=== PATIENT | male | born 1970 | race Caucasian/White ===

== ENCOUNTER 2016-11-21 10:51 | Emergency (ER) | payer BC, MEDICAID ==
[2016-11-21 11:01] VITALS: BMI 25.4
[2016-11-21 11:12] VITALS: RESP 18; TEMP 98.3
[2016-11-21 12:39] LABS: BASO # 0.1 K/uL (0.0-0.2); BASO % 0.7 % (0.0-2.0); EOS # 0.1 K/uL (0.0-0.7); EOS % 1.1 % (0.0-4.0); HEMATOCRIT 42.7 % (35.0-51.0); LYMPH # 1.8 K/uL (1.0-4.3); LYMPH % 18.2 % (20.0-40.0); MEAN CELL VOLUME 83.9 fl (80.0-94.0); MEAN CORPUSCULAR HEMOGLOBIN 29.2 pg (27.0-31.0); MEAN CORPUSCULAR HGB CONC 34.8 g/dL (33.0-37.0); MEAN PLATELET VOLUME 7.8 fl (7.2-11.7); MONO # 0.8 K/uL (0.0-0.8); MONO % 8.5 % (0.0-10.0); NEUT % 71.5 % (50.0-75.0); RED CELL DISTRIBUTION WIDTH 12.8 % (11.5-14.5); WHITE BLOOD COUNT 9.7 K/uL (4.8-10.8)
[2016-11-21 12:47] LABS: ALB/GLOB RATIO 1.1 (1.0-2.1); ALKALINE PHOSPHATASE 94 U/L (38-126); ALT/SGPT 44 U/L (21-72); AST/SGOT 25 U/L (17-59); BILIRUBIN,TOTAL 0.5 mg/dl (0.2-1.3); BLOOD UREA NITROGEN 11 mg/dl (9-20); CALCIUM 8.7 mg/dL (8.4-10.2); CARBON DIOXIDE 23 mmol/L (22-30); CHLORIDE 106 mmol/L (98-107); GFR AFRICAN-AMERICAN > 60; GLUCOSE,RANDOM 99 mg/dL (75-110); LIPASE 30 U/L (23-300); POTASSIUM 3.8 MMOL/L (3.6-5.0); SODIUM 139 mmol/l (132-148); TOTAL PROTEIN 7.5 G/DL (6.3-8.2)
--- NOTE | 2016-11-21 13:32 | ED PDOC ---
HPI: Abdomen Time Seen by Provider: 11/21/16 11:13 Chief Complaint (Nursing): Abdominal Pain Chief Complaint (Provider): Cramping Abdominal Pain History Per: Patient History/Exam Limitations: no limitations Onset/Duration Of Symptoms: Days Outside of [place] travel?: No Current Symptoms Are (Timing): Still Present Quality Of Discomfort: Cramping Associated Symptoms: denies: Fever, Vomiting Additional Complaint(s): Remington Ulloa, a 46 year old male, presents to the ED complaining of cramping abdominal pain associated with mucous stools which started yesterday. The patient states that he ate some cheese from [place] and that may be the cause of his pain. Denies vomiting, bloody stools, fever. Past Medical History Reviewed: Historical Data, Nursing Documentation, Vital Signs Vital Signs: Last Vital Signs Temp 98.3 F 11/21/16 11:09 Pulse 79 11/21/16 14:47 Resp 18 11/21/16 14:47 BP 112/70 11/21/16 14:47 Pulse Ox 98 11/21/16 14:47 - Medical History PMH: No Chronic Diseases - Surgical History Surgical History: No Surg Hx - Family History Family History: States: Unknown Family Hx - Social History Current smoker - smoking cessation education provided: No Alcohol: None Drugs: Denies - Home Medications Home Medications: Ambulatory Orders Medication Instructions Recorded Neomycin/Polymyxin/Hydrocort 4 drop TOP QID #1 bottle 12/03/13 [Cortisporin Otic Soln] Amoxicillin/Clavulanate Pota 1 tab PO BID #14 tab 12/21/13 [Augmentin 875 mg-125 mg] Guaifenesin/Pseudoephedrne HCl 1 tab PO DAILY PRN #30 ter 12/21/13 [Mucinex D 600 mg-60 mg] Ibuprofen [Motrin] 600 mg PO Q6 PRN #20 tab 12/21/13 Azithromycin [Zithromax Z-Yo] 250 mg PO DAILY #5 tab 01/22/14 Ibuprofen [Motrin] 600 mg PO Q6 PRN #20 tab 01/22/14 diaZEpam [Valium] 5 mg PO Q6 PRN #8 tab 11/16/15 Dicyclomine [Dicyclomine HCl] 10 mg PO TID PRN #15 cap 11/21/16 Sulfamethoxazole/Trimethoprim 1 tab PO BID #6 tab 11/21/16 [Bactrim DS 800 mg-160 mg] - Allergies Allergies/Adverse Reactions: Allergies Allergy/AdvReac Type Severity Reaction Status Date / Time No Known Allergies Allergy Verified 11/21/16 11:08 Review of Systems Constitutional: Negative for: Fever Gastrointestinal: Positive for: Abdominal Pain (Cramping abdominal pain). Negative for: Vomiting, Hematochezia Physical Exam - Reviewed Nursing Documentation Reviewed: Yes Vital Signs Reviewed: Yes - Physical Exam Appears: Positive for: Non-toxic, No Acute Distress Head Exam: Positive for: ATRAUMATIC, NORMAL INSPECTION, NORMOCEPHALIC Skin: Positive for: Normal Color, Warm, Dry. Negative for: Rash Eye Exam: Positive for: Normal appearance, EOMI, PERRL. Negative for: Nystagmus ENT: Positive for: Normal ENT Inspection. Negative for: Nasal Congestion, Tonsillar Swelling Neck: Positive for: Normal, Painless ROM, Supple Cardiovascular/Chest: Positive for: Regular Rate, Rhythm, Chest Non Tender. Negative for: Murmur, Tachycardia Respiratory: Positive for: Normal Breath Sounds. Negative for: Rales, Rhonchi, Wheezing, Respiratory Distress Gastrointestinal/Abdominal: Positive for: Bowel Sounds, Soft, Tenderness (mild tenderness in epigastric area ). Negative for: Guarding, Rebound Back: Positive for: Normal Inspection. Negative for: L CVA Tenderness, R CVA Tenderness Extremity: Positive for: Normal ROM. Negative for: Tenderness, Pedal Edema, Deformity, Swelling Neurologic/Psych: Positive for: Alert, Oriented, Gait - Laboratory Results Result Diagrams: 11/21/16 12:30 11/21/16 12:30 - ECG O2 Sat by Pulse Oximetry: 99 (RA) Pulse Ox Interpretation: Normal - Progress Re-evaluation Time: 14:00 Condition: Re-examined, Improved Medical Decision Making Medical Decision Makin Initial Impression: 46 year old male presenting with abdominal pain Differentials: Colitis, Enteritis, diverticulitis Initial Plan: * CMP * Lipase * CBC * Bentyl 10mg PO * Reevaluation Scribe Attestation Documented by Symone Aggarwal acting as a scribe for Gerasim Orbelyan , MD. Provider Attestation All medical record entries made by the Scribe were at my direction and personally dictated by me. I have reviewed the chart and agree that the record accurately reflects my personal performance of the history, physical exam, medical decision making, and the department course for this patient. I have also personally directed, reviewed, and agree with the discharge instructions and disposition. Disposition - Clinical Impression Clinical Impression: Abdominal pain, Colitis - Patient ED Disposition Is Patient to be Admitted: No Doctor Will See Patient In The: Office Counseled Patient/Family Regarding: Studies Performed, Diagnosis, Need For Followup - Disposition Referrals: [facility] [Outside] Disposition: Routine/Home Disposition Time: 14:00 Condition: GOOD Additional Instructions: Take your medications as instructed. Follow up with your PCP in 2-3 days. Prescriptions: Dicyclomine [Dicyclomine HCl] 10 mg PO TID PRN #15 cap PRN Reason: Diarrhea Sulfamethoxazole/Trimethoprim [Bactrim DS 800 mg-160 mg] 1 tab PO BID #6 tab Instructions: Colitis (ED) Forms: [employer] (Australian)
[2016-11-21 14:48] VITALS: BP 112/70; PULSE 79
[2016-11-23 10:20] VITALS: O2SAT 99
== END 2016-11-21 14:48 | disposition home or self-care (01) ==
LOC: H.ER 10:51
DX: K52.9 Noninfective gastroenteritis and colitis, unspecified (principal)

== ENCOUNTER 2017-03-15 23:38 | Emergency (ER) | payer MEDICAID ==
[2017-03-15 23:38] VITALS: BMI 25.4
[2017-03-15 23:59] VITALS: RESP 16
[2017-03-16 01:26] VITALS: PULSE 72; TEMP 97.4; O2SAT 100
--- NOTE | 2017-03-16 01:45 | ED PDOC ---
HPI: Abdomen Time Seen by Provider: 03/16/17 00:08 Chief Complaint (Nursing): Abdominal Pain Chief Complaint (Provider): Abdominal Pain History Per: Patient History/Exam Limitations: no limitations Onset/Duration Of Symptoms: Days (x1) Outside of US travel?: No Current Symptoms Are (Timing): Better Location Of Pain/Discomfort: Epigastric Quality Of Discomfort: Cramping Associated Symptoms: Diarrhea. denies: Fever, Nausea, Vomiting Additional Complaint(s): 46 year old male presents to ED with complaints of abdominal pain and diarrhea x1 day and has a past medical history of HTN. Notes that symptoms were worse yesterday but are still present today. Describes abdominal pain as cramping and notes presence of mucous in stool. Notes that he had these symptoms once before when he was diagnosed with colitis. (-0 fever, nausea, vomiting, weight loss, antibiotics use, or travel. PCP: [facility] Past Medical History Reviewed: Historical Data, Nursing Documentation, Vital Signs Vital Signs: Last Vital Signs Temp 97.4 F L 03/16/17 01:23 Pulse 72 03/16/17 01:23 Resp 16 03/16/17 01:23 BP 110/61 03/16/17 03:07 Pulse Ox 100 03/16/17 03:00 - Medical History PMH: HTN - Family History Family History: States: Unknown Family Hx - Social History Alcohol: None Drugs: Denies - Home Medications Home Medications: Ambulatory Orders Medication Instructions Recorded Neomycin/Polymyxin/Hydrocort 4 drop TOP QID #1 bottle 12/03/13 [Cortisporin Otic Soln] Amoxicillin/Clavulanate Pota 1 tab PO BID #14 tab 12/21/13 [Augmentin 875 mg-125 mg] Guaifenesin/Pseudoephedrne HCl 1 tab PO DAILY PRN #30 ter 12/21/13 [Mucinex D 600 mg-60 mg] Ibuprofen [Motrin] 600 mg PO Q6 PRN #20 tab 12/21/13 Azithromycin [Zithromax Z-Yo] 250 mg PO DAILY #5 tab 01/22/14 Ibuprofen [Motrin] 600 mg PO Q6 PRN #20 tab 01/22/14 diaZEpam [Valium] 5 mg PO Q6 PRN #8 tab 11/16/15 Dicyclomine [Dicyclomine HCl] 10 mg PO TID PRN #15 cap 11/21/16 Sulfamethoxazole/Trimethoprim 1 tab PO BID #6 tab 11/21/16 [Bactrim DS 800 mg-160 mg] Dicyclomine [Bentyl] 10 mg PO QID #20 cap 03/16/17 - Allergies Allergies/Adverse Reactions: Allergies Allergy/AdvReac Type Severity Reaction Status Date / Time No Known Allergies Allergy Verified 11/21/16 11:08 Review of Systems ROS Statement: Except As Marked, All Systems Reviewed And Found Negative Constitutional: Negative for: Fever, Weight loss Gastrointestinal: Positive for: Abdominal Pain, Diarrhea. Negative for: Nausea , Vomiting Physical Exam - Reviewed Nursing Documentation Reviewed: Yes Vital Signs Reviewed: Yes - Physical Exam Appears: Positive for: Non-toxic, No Acute Distress Skin: Positive for: Normal Color, Warm, Dry Eye Exam: Positive for: Normal appearance ENT: Positive for: Normal ENT Inspection Neck: Positive for: Normal Cardiovascular/Chest: Positive for: Regular Rate, Rhythm. Negative for: Murmur Respiratory: Positive for: Normal Breath Sounds. Negative for: Respiratory Distress Gastrointestinal/Abdominal: Positive for: Soft, Tenderness (mild epigastric tenderness). Negative for: Distended Back: Positive for: Normal Inspection Extremity: Positive for: Normal ROM. Negative for: Deformity Neurologic/Psych: Positive for: Alert, Oriented. Negative for: Motor/Sensory Deficits - Laboratory Results Result Diagrams: 03/16/17 01:38 03/16/17 01:38 - ECG O2 Sat by Pulse Oximetry: 100 (RA) Pulse Ox Interpretation: Normal Medical Decision Making Medical Decision Makin Initial impression: colitis v colon spasm Initial plan: * Labs * Lipase * Bentyl 20mg PO * Stool Cx * UA * Re-eval 0300 Labs reviewed: no clinically significant abnormalities Patient is stable for discharge home. Will follow up with Dr. Taylor Dx: diarrhea Scribe Attestation: Documented by Bettye Vences acting as a scribe for aSlomon Roth MD. Scribe Attestation: All medical record entries made by the Scribe were at my direction and personally dictated by me. I have reviewed the chart and agree that the record accurately reflects my personal performance of the history, physical exam, medical decision making, and the department course for this patient. I have also personally directed, reviewed, and agree with the discharge instructions and disposition. Disposition - Clinical Impression Clinical Impression: Diarrhea - Disposition Referrals: Shruthi Taylor MD [Family Provider] - Disposition: Routine/Home Disposition Time: 03:00 Condition: STABLE Additional Instructions: Siga con Dr. Taylor por dawood resultados de la heces. Prescriptions: Dicyclomine [Bentyl] 10 mg PO QID #20 cap Instructions: Acute Diarrhea (ED), Acute Abdominal Pain (ED) Forms: [employer] (Uzbek) Print Language: IRISH
[2017-03-16 01:46] LABS: BASO # 0.1 K/uL (0.0-0.2); BASO % 1.1 % (0.0-2.0); EOS # 0.3 K/uL (0.0-0.7); EOS % 4.3 % (0.0-4.0); HEMATOCRIT 41.7 % (35.0-51.0); LYMPH # 2.9 K/uL (1.0-4.3); LYMPH % 44.3 % (20.0-40.0); MEAN CELL VOLUME 85.2 fl (80.0-94.0); MEAN CORPUSCULAR HEMOGLOBIN 28.8 pg (27.0-31.0); MEAN CORPUSCULAR HGB CONC 33.8 g/dL (33.0-37.0); MONO # 0.7 K/uL (0.0-0.8); MONO % 10.6 % (0.0-10.0); NEUT # 2.6 K/uL (1.8-7.0); NEUT % 39.7 % (50.0-75.0); NRBC % 0.1 % (0.0-0.0); RED CELL DISTRIBUTION WIDTH 12.8 % (11.5-14.5); WHITE BLOOD COUNT 6.6 K/uL (4.8-10.8)
[2017-03-16 01:47] LABS: RBC URINE < 1 /hpf (0-3); URINE BILIRUBIN NEGATIVE (NEGATIVE); URINE BLOOD NEGATIVE (NEGATIVE); URINE COLOR STRAW (YELLOW); URINE GLUCOSE (UA) NEG (Normal); URINE KETONE NEGATIVE (NEGATIVE); URINE LEUKOCYTE ESTERASE NEG Leu/uL (Negative); URINE PROTEIN NEGATIVE (NEGATIVE); URINE UROBILINOGEN 0.2-1.0 mg/dL (0.2-1.0); WBC URINE < 1 /hpf (0-5)
[2017-03-16 01:55] LABS: BLOOD UREA NITROGEN 22 mg/dl (9-20); CALCIUM 8.3 mg/dL (8.4-10.2); CARBON DIOXIDE 22 mmol/L (22-30); CHLORIDE 106 mmol/L (98-107); GFR AFRICAN-AMERICAN > 60; GLUCOSE,RANDOM 94 mg/dL (75-110); LIPASE 55 U/L (23-300); SODIUM 138 mmol/l (132-148)
[2017-03-16 03:08] VITALS: BP 110/61
== END 2017-03-16 03:07 | disposition home or self-care (01) ==
LOC: H.ER 23:38
DX: K52.9 Noninfective gastroenteritis and colitis, unspecified (principal); I10 Essential (primary) hypertension

== ENCOUNTER 2017-04-17 08:33 | Emergency (ER) | payer MEDICAID ==
[2017-04-17 08:40] VITALS: BMI 25.6
[2017-04-17 08:41] VITALS: BP 120/60; PULSE 78; RESP 17; TEMP 99.9; O2SAT 97
--- NOTE | 2017-04-17 09:02 | ED PDOC ---
HPI: CCC, URI, Sore Throat Time Seen by Provider: 04/17/17 08:51 Chief Complaint (Nursing): Cough, Cold, Congestion Chief Complaint (Provider): Cough, Sore Throat, Fever History Per: Patient History/Exam Limitations: no limitations Onset/Duration Of Symptoms: Days (x 2) Current Symptoms Are (Timing): Still Present Additional Complaint(s): Remington is a 47 y/o male with no past medical history who presents to the ED complaining of sore throat, fever, body aches, and non-productive cough for the past 2 days. He denies shortness of breath. PMD: None Past Medical History Reviewed: Historical Data, Nursing Documentation, Vital Signs Vital Signs: Last Vital Signs Temp 99.9 F H 04/17/17 08:40 Pulse 78 04/17/17 08:40 Resp 17 04/17/17 08:40 BP 120/60 04/17/17 08:40 Pulse Ox 97 04/17/17 09:37 - Medical History PMH: HTN - Family History Family History: States: Unknown Family Hx - Home Medications Home Medications: Ambulatory Orders Medication Instructions Recorded Neomycin/Polymyxin/Hydrocort 4 drop TOP QID #1 bottle 12/03/13 [Cortisporin Otic Soln] Amoxicillin/Clavulanate Pota 1 tab PO BID #14 tab 12/21/13 [Augmentin 875 mg-125 mg] Guaifenesin/Pseudoephedrne HCl 1 tab PO DAILY PRN #30 ter 12/21/13 [Mucinex D 600 mg-60 mg] Ibuprofen [Motrin] 600 mg PO Q6 PRN #20 tab 12/21/13 Azithromycin [Zithromax Z-Yo] 250 mg PO DAILY #5 tab 01/22/14 Ibuprofen [Motrin] 600 mg PO Q6 PRN #20 tab 01/22/14 diaZEpam [Valium] 5 mg PO Q6 PRN #8 tab 11/16/15 Dicyclomine [Dicyclomine HCl] 10 mg PO TID PRN #15 cap 11/21/16 Sulfamethoxazole/Trimethoprim 1 tab PO BID #6 tab 11/21/16 [Bactrim DS 800 mg-160 mg] Dicyclomine [Bentyl] 10 mg PO QID #20 cap 03/16/17 Azithromycin [Zithromax] 250 mg PO DAILY #6 tab 04/17/17 Naproxen [Naprosyn] 500 mg PO Q12H #20 tab 04/17/17 - Allergies Allergies/Adverse Reactions: Allergies Allergy/AdvReac Type Severity Reaction Status Date / Time No Known Allergies Allergy Verified 04/17/17 08:48 Review of Systems ROS Statement: Except As Marked, All Systems Reviewed And Found Negative Constitutional: Positive for: Fever, Other (body aches) ENT: Positive for: Throat Pain Respiratory: Positive for: Cough (non-productive). Negative for: Shortness of Breath Physical Exam - Reviewed Nursing Documentation Reviewed: Yes Vital Signs Reviewed: Yes - Physical Exam Appears: Positive for: Well, Non-toxic, No Acute Distress ENT: Positive for: Pharyngeal Erythema. Negative for: Tonsillar Exudate Neck: Positive for: Supple Cardiovascular/Chest: Positive for: Regular Rate, Rhythm Respiratory: Positive for: Normal Breath Sounds Extremity: Positive for: Normal ROM - ECG O2 Sat by Pulse Oximetry: 97 (RA) Pulse Ox Interpretation: Normal Medical Decision Making Medical Decision Making: Time: 8:55 Initial Impression: Cough, sore throat, fever Initial Plan: --Chest XR --Influenza A B Time: 9:30 --Patient c/o headache. Tylenol ordered Scribe Attestation: Documented by Filemon Ng, acting as a scribe for Connor Easton MD. Provider Scribe Attestation: All medical record entries made by the Scribe were at my direction and personally dictated by me. I have reviewed the chart and agree that the record accurately reflects my personal performance of the history, physical exam, medical decision making, and the department course for this patient. I have also personally directed, reviewed, and agree with the discharge instructions and disposition. Disposition - Clinical Impression Clinical Impression: Bronchitis - Patient ED Disposition Is Patient to be Admitted: No Counseled Patient/Family Regarding: Studies Performed, Diagnosis, Need For Followup, Rx Given - Disposition Referrals: [facility] [Outside] Disposition: Routine/Home Disposition Time: 11:04 Condition: FAIR Prescriptions: Azithromycin [Zithromax] 250 mg PO DAILY #6 tab Naproxen [Naprosyn] 500 mg PO Q12H #20 tab Instructions: Acute Bronchitis (ED) Forms: [facility] (Panamanian) Print Language: PALAUAN
--- NOTE | 2017-04-17 10:32 | RAD ---
HISTORY: cough COMPARISON: No prior. TECHNIQUE: Chest PA and lateral FINDINGS: LUNGS: No active pulmonary disease. PLEURA: No significant pleural effusion identified. No pneumothorax apparent. CARDIOVASCULAR: Normal. OSSEOUS STRUCTURES: No significant abnormalities. VISUALIZED UPPER ABDOMEN: Normal. OTHER FINDINGS: None. IMPRESSION: No active disease.
== END 2017-04-17 11:42 | disposition home or self-care (01) ==
LOC: H.ER 08:33
DX: J40 Bronchitis, not specified as acute or chronic (principal); I10 Essential (primary) hypertension

== ENCOUNTER 2017-04-23 14:33 | Inpatient (IN) | payer MEDICAID ==
[2017-04-23 14:33] VITALS: BMI 25.6
[2017-04-23] MEDS ORDERED: Albuterol-Ipratrop 3 mg / 0.5 (3 ml) UD INH STA (16:13)
--- NOTE | 2017-04-23 16:42 | RAD ---
HISTORY: Cough COMPARISON: 04/17/2017 TECHNIQUE: Chest PA and lateral FINDINGS: LUNGS: No active pulmonary disease. PLEURA: No significant pleural effusion identified. No pneumothorax apparent. CARDIOVASCULAR: No radiographic findings to suggest acute or significant cardiovascular disease. OSSEOUS STRUCTURES: No significant abnormalities. VISUALIZED UPPER ABDOMEN: Normal. OTHER FINDINGS: None. IMPRESSION: No active disease. No significant interval change compared to the prior examination(s).
--- NOTE | 2017-04-23 16:47 | ED PDOC ---
HPI: SOB/CHF/COPD Time Seen by Provider: 04/23/17 15:52 Chief Complaint (Nursing): Shortness Of Breath Chief Complaint (Provider): Cough History Per: Patient History/Exam Limitations: no limitations Additional Complaint(s): Pt reports nonproductive cough with deep inspiration X 6 days. Evaluated in ED on 04/18/17, CXR and Influenza normal, discharged home with Rx Zithromax without relief. Also evaluated by PMD, Rx Augmentin and cough medicine without relief. Denies fever, CP, palpitations. Past Medical History Reviewed: Nursing Documentation, Vital Signs Vital Signs: Last Vital Signs Temp 98.4 F 04/27/17 08:34 Pulse 69 04/27/17 08:34 Resp 20 04/27/17 08:34 BP 107/62 04/27/17 08:34 Pulse Ox 98 04/27/17 10:18 - Medical History PMH: HTN - Family History Family History: States: Unknown Family Hx - Social History Current smoker - smoking cessation education provided: No Alcohol: None - Home Medications Home Medications: Ambulatory Orders Medication Instructions Recorded Amoxicillin/Clavulanate Pota 1 tab PO BID #14 tab 12/21/13 [Augmentin 875 mg-125 mg] - Allergies Allergies/Adverse Reactions: Allergies Allergy/AdvReac Type Severity Reaction Status Date / Time No Known Allergies Allergy Verified 04/17/17 08:48 Curb-65 Severity Score - CURB-65 Severity Score Confusion: No Respiratory Rate greater than/equal to 30: No Systolic BP <90 or Diastolic BP less than/equal 60mmHg: No Age >64: No Curb-65 Score: 0 Percentage 30-day mortality: 0.6% Review of Systems Constitutional: Negative for: Fever, Chills Cardiovascular: Negative for: Chest Pain, Palpitations Respiratory: Positive for: Cough, Shortness of Breath. Negative for: Hemoptysis , Sputum, Wheezing Gastrointestinal: Negative for: Nausea, Vomiting, Abdominal Pain Skin: Negative for: Rash, Lesions Neurological: Negative for: Headache, Dizziness Physical Exam - Reviewed Nursing Documentation Reviewed: Yes Vital Signs Reviewed: Yes - Physical Exam Appears: Positive for: Well, No Acute Distress (Speaking full sentences) Skin: Positive for: Normal Color, Warm, Dry Eye Exam: Positive for: Normal appearance, EOMI, PERRL Neck: Positive for: Normal Cardiovascular/Chest: Positive for: Regular Rate, Rhythm Respiratory: Positive for: Normal Breath Sounds. Negative for: Rales, Rhonchi, Wheezing Back: Positive for: Normal Inspection Extremity: Positive for: Normal ROM Neurologic/Psych: Positive for: Alert, Oriented - Laboratory Results Result Diagrams: 04/27/17 05:45 04/27/17 05:45 - ECG Interpretation Of ECG: NSR @ 70, no ST-T changes. O2 Sat by Pulse Oximetry: 98 Pulse Ox Interpretation: Normal Medical Decision Making Medical Decision Makin yo male with nonproductive cough. - labs - EKG - CXR - Albuterol/atrovent - Solumedrol Disposition - Clinical Impression Clinical Impression: Cough - Disposition Disposition: Transfer of Care Disposition Time: 17:00 Condition: STABLE Patient Signed Over To: Alonzo Lawson III
--- NOTE | 2017-04-23 16:58 | ED PDOC ---
- Laboratory Results Result Diagrams: 04/27/17 05:45 04/27/17 05:45 - ECG O2 Sat by Pulse Oximetry: 98 Pulse Ox Interpretation: Normal Medical Decision Making Medical Decision Making: recd from dr grullon pending workup/ dispo remained dyspneic Admit Dr Taylor given failure of outpatient therapy Disposition Counseled Patient/Family Regarding: Studies Performed, Diagnosis - Clinical Impression Clinical Impression: Cough, Pneumonia - POA Present On Arrival: None - Disposition Disposition: Admitted as In-Patient Disposition Time: 19:00 Condition: STABLE
[2017-04-23] MEDS ORDERED: Albuterol-Ipratrop 3 mg / 0.5 (3 ml) UD ONE (17:11)
[2017-04-23 17:16] LABS: BASO # 0.1 K/uL (0.0-0.2); BASO % 0.6 % (0.0-2.0); EOS # 0.1 K/uL (0.0-0.7); EOS % 1.1 % (0.0-4.0); HEMOGLOBIN 15.2 g/dL (12.0-18.0); LYMPH # 2.3 K/uL (1.0-4.3); LYMPH % 27.8 % (20.0-40.0); MEAN CELL VOLUME 84.8 fl (80.0-94.0); MEAN CORPUSCULAR HEMOGLOBIN 28.7 pg (27.0-31.0); MEAN CORPUSCULAR HGB CONC 33.8 g/dL (33.0-37.0); MEAN PLATELET VOLUME 7.3 fl (7.2-11.7); MONO # 0.6 K/uL (0.0-0.8); MONO % 7.7 % (0.0-10.0); NEUT # 5.2 K/uL (1.8-7.0); NEUT % 62.8 % (50.0-75.0); NRBC % 0.1 % (0.0-0.0); RBC 5.3 Mil/uL (4.40-5.90); RED CELL DISTRIBUTION WIDTH 12.8 % (11.5-14.5); WHITE BLOOD COUNT 8.3 K/uL (4.8-10.8)
[2017-04-23 17:30] LABS: ALBUMIN 4.1 g/dL (3.5-5.0); ALT/SGPT 100 U/L (21-72); AST/SGOT 61 U/L (17-59); BLOOD UREA NITROGEN 14 mg/dl (9-20); CALCIUM 9.1 mg/dL (8.4-10.2); GFR AFRICAN-AMERICAN > 60; GFR NON-AFRICAN AMERICAN > 60
[2017-04-23 17:59] LABS: PARTIAL THROMBOPLASTIN TIME 30.1 Seconds (25.6-37.1); PROTHROMBIN TIME 11.3 Seconds (9.8-13.1)
[2017-04-23] MEDS ORDERED: Iodixanol 320 MG/ML 100 ML BOTTLE IV ONE (19:34)
[2017-04-23] MEDS ORDERED: Sodium Chloride 0.9% 50 ML IV ONE (19:34)
--- NOTE | 2017-04-23 21:46 | CT ---
EXAM: CT Angiography Chest With Intravenous Contrast EXAM DATE/TIME: 04/23/2017 7:25 PM CLINICAL HISTORY: 47 years old, male; Signs and symptoms; Other: Flue like symptoms; Additional info: R/O pe TECHNIQUE: Axial computed tomographic angiography images of the chest with intravenous contrast using pulmonary embolism protocol. All CT scans at this facility use one or more dose reduction techniques, viz.: automated exposure control; ma/kV adjustment per patient size (including targeted exams where dose is matched to indication; i.e. head); or iterative reconstruction technique. MIP reconstructed images were created and reviewed. Coronal and sagittal reformatted images were created and reviewed. CONTRAST: 95 mL of VISIPAQUE-320 administered intravenously. COMPARISON: There are no prior studies for comparison. FINDINGS: Arch, aorta and Pulmonary arteries: Heart size is normal.There is trace fluid in pericardial recesses. Aorta is normal in caliber.There are no pulmonary emboli. Lungs and pleural spaces: Trachea and main bronchi are patent. There is no pneumothorax. There is minimal apical pleural scarring. There is minimal peripheral airspace disease in the upper lobes. There is slightly greater patchy airspace disease in the middle lobe. Patchy parenchymal opacities in both lower lobes right greater than left. There is medial right lower lung airspace disease There are no effusions. Mediastinum: The esophagus is unremarkable. There is a spinal hernia. There are no pathologically enlarged mediastinal or hilar nodes. Thyroid: Thyroid is unremarkable Bones/joints: There are degenerative changes in the osseus structures. Soft tissues: unremarkable Upper abdomen: There are no acute abnormalities in the visualized portion of the abdomen. IMPRESSION: Bilateral airspace disease/pneumonia greatest in the right lower lobe; no pulmonary emboli Additional nonemergent findings as described above.
[2017-04-23] MEDS ORDERED: levoFLOXacin 750 mg in D5W 150 ML BAG IVPB STA (22:06)
[2017-04-23] MEDS ORDERED: levoFLOXacin 750 mg in D5W 750 MG/150 ML BAG IVPB ONE (23:04)
[2017-04-24] MEDS: Albuterol-Ipratrop 3 mg / 0.5 (3 ml) UD INH SCH ×4 (01:21→19:19)
[2017-04-24] MEDS ORDERED: levoFLOXacin 750 mg in D5W 150 ML BAG IVPB SCH (09:00)
[2017-04-24] MEDS: guaiFENesin 600 mg ER Tab PO SCH ×2 (12:10→21:23)
--- NOTE | 2017-04-24 22:25 | HP ---
HISTORY OF PRESENT ILLNESS: This is a 47-year-old male with history of no significant past medical history, presented to emergency room with shortness of breath and cough. The patient has been treated for respiratory symptoms as an outpatient with multiple antibiotics. The patient failed outpatient treatment and presented to emergency room. The patient was evaluated and a chest x-ray was done as well as a CAT scan of the chest that showed bilateral airspace disease, greatest in the right lower lobe, no pulmonary embolism. The patient was admitted for further management. ALLERGIES: NO KNOWN ALLERGY. MEDICATIONS: The patient was on azithromycin and Augmentin. PAST MEDICAL HISTORY: Nonsignificant. SOCIAL HISTORY: No history of smoking, EtOH, or substance abuse. FAMILY HISTORY: Noncontributory. PHYSICAL EXAMINATION: GENERAL: The patient was not in any cardiopulmonary distress. Vital signs: Blood pressure 108/65, temperature 98.5, respiratory rate 18, and pulse 74. HEENT: Pupils equal, reactive to light. Normal-appearing mucosa of the conjunctivae, oropharynx, and nasal membrane mucosa. NECK: Supple. No JVD. No carotid bruit. No lymph node. No thyromegaly. CHEST AND LUNGS: Bilateral symmetrical expansion. Good air exchange. Few basilar rales. CARDIOVASCULAR SYSTEM: PMI not localized, S1 and S2. No additional sounds. ABDOMEN: Normoactive bowel sounds. No tenderness. No organomegaly. No masses. EXTREMITIES: No cyanosis, no clubbing, no edema. CENTRAL NERVOUS SYSTEM: Alert, awake, oriented x3. No neurological deficits could be appreciated. ASSESSMENT: Bilateral pneumonia that failed outpatient treatment. PLAN: Continue antibiotics, levofloxacin 750 mg daily as well as bronchodilator by nebulizer. Shruthi Taylor MD
[2017-04-25] MEDS: Albuterol-Ipratrop 3 mg / 0.5 (3 ml) UD INH SCH ×4 (01:11→20:22)
[2017-04-25 06:32] LABS: HEMOGLOBIN 14.1 g/dL (12.0-18.0); MEAN CELL VOLUME 84.4 fl (80.0-94.0); MEAN CORPUSCULAR HEMOGLOBIN 28.4 pg (27.0-31.0); MEAN CORPUSCULAR HGB CONC 33.7 g/dL (33.0-37.0); RBC 4.97 Mil/uL (4.40-5.90); RED CELL DISTRIBUTION WIDTH 12.7 % (11.5-14.5); WHITE BLOOD COUNT 7.1 K/uL (4.8-10.8)
[2017-04-25 06:48] LABS: BLOOD UREA NITROGEN 16 mg/dl (9-20); CALCIUM 8.9 mg/dL (8.4-10.2); GFR AFRICAN-AMERICAN > 60; GFR NON-AFRICAN AMERICAN > 60
[2017-04-25] MEDS: guaiFENesin 600 mg ER Tab PO SCH ×2 (09:11→21:06)
--- NOTE | 2017-04-25 10:45 | PQF GENQUE ---
Dr. Taylor, 1. Please specify type of pneumonia in the progress notes: Note: CAP, HAP, and HCAP indicate where the pneumonia was acquired, not a specific type type: i.e. Aspiration pneumonia Please document specific aspirate (food, liquids, etc.) Please indicate if this is postprocedural Bacterial (specify organism) Bronchopneumonia (specify organism) Interstitual pneumonia Organizing pneumonia/BOOP Pneumonia with influenza, becky flu, or H1N1 flu RSV pneumonia Tuberculosis, pulmonary Viral pneumonia Other pneumonia (specify organism or type) Clinically unable to determine Unknown 2. Please specify the organism causing the pneumonia if known after the work up is completed 04/[address]: Impression : Bilateral airspace disease/pneumonia greatest in the right lower lobe; no pulmonary emboli H and P: Assessment: Bilateral pneumonia that failed outpatient treatment. This form is a permanent part of the medical record Clarification of your documentation is requested to better reflect the severity of illness and intensity of treatment of your patient. Indicators present [] Specify: [] [] Specify: [] [] Specify: [] [] Specify: [] Location in the medical record that reflects the above clinical findings: [] Treatment Provided: [] PHYSICIAN'S RESPONSE Based on your medical judgment of the clinical indicators outlined above please clarify the following: [] Practitioner response [] If unable to determine, please check the box, sign and date. Present On Admission (POA) Indicator: [] Present at the time of admission [] Not present at the time of admission [] Clinically Undetermined In responding to this query, please exercise your independent professional judgment. The fact that a question is asked does not imply that any particular answer is desired or expected. Thank you for your clarification on this documentation. If you have any questions please call. * Thank you, Ira Whitman RN ext. #[phone] MTDD
--- NOTE | 2017-04-25 11:25 | CARD ---
APPROVED REPORT EKG Measurement Heart [id number] MI [id number] <Conclusion> Normal sinus rhythm Increased R/S ratio in V1, consider early transition or posterior infarct Abnormal ECG
[2017-04-25] MEDS: Fluticasone-Salmeterol 250-50mcg Diskus IH SCH (21:06)
[2017-04-26] MEDS: Saccharomyces Boulardi 250 mg Cap PO SCH ×3 (00:09→16:39)
[2017-04-26] MEDS: Albuterol-Ipratrop 3 mg / 0.5 (3 ml) UD INH SCH ×4 (01:13→19:37)
--- NOTE | 2017-04-26 01:32 | PN ---
DATE: 04/25/2017 DAILY PROGRESS NOTE SUBJECTIVE: The patient is seen today, 04/25/2017. He still has cough and shortness of breath. OBJECTIVE: VITAL SIGNS: Blood pressure is 103/65, temperature 97.9, respiratory rate 20, and pulse 61. HEENT: Pupils equal, reactive to light. Normal-appearing mucosa of the conjunctivae, oropharynx, and nasal membrane mucosa. NECK: Supple. No JVD. No carotid bruit. No lymph node. No thyromegaly. CHEST AND LUNGS: Bilateral symmetrical expansion. Good air exchange. No rales. No rhonchi. CARDIOVASCULAR SYSTEM: PMI not localized. S1 and S2. No additional sounds. ABDOMEN: Normoactive bowel sounds. No tenderness. No organomegaly. No masses. EXTREMITIES: No cyanosis, no clubbing, no edema. CENTRAL NERVOUS SYSTEM: Alert, awake, oriented x2. No neurological deficits could be appreciated. ASSESSMENT: 1. Bilateral pneumonia. 2. Hyperactive airway disease. PLAN: We will continue bronchodilators, current IV antibiotics, and we will add Advair 250/50 one puff twice a day. Shruthi Taylor MD
[2017-04-26] MEDS: guaiFENesin 600 mg ER Tab PO SCH ×2 (08:25→21:35)
[2017-04-26] MEDS: Fluticasone-Salmeterol 250-50mcg Diskus IH SCH ×2 (08:25→21:35)
[2017-04-26] MEDS: Enoxaparin 40 mg Syringe SC SCH (13:23)
--- NOTE | 2017-04-26 15:13 | RAD ---
HISTORY: Follow-up pneumonia. COMPARISON: 04/23/2017. Two-view chest. 04/23/2017 CT thorax. Eight TECHNIQUE: Chest PA and lateral FINDINGS: LUNGS: No active pulmonary disease. PLEURA: No significant pleural effusion identified. No pneumothorax apparent. CARDIOVASCULAR: Normal. OSSEOUS STRUCTURES: No significant abnormalities. VISUALIZED UPPER ABDOMEN: Normal. OTHER FINDINGS: None. IMPRESSION: No active disease. No significant interval change compared to the prior examination(s).
[2017-04-26 23:41] VITALS: RESP 20; TEMP 98.4
[2017-04-27] MEDS: Albuterol-Ipratrop 3 mg / 0.5 (3 ml) UD INH SCH ×3 (01:00→13:18)
--- NOTE | 2017-04-27 02:56 | PN ---
DATE: 04/26/2017 SUBJECTIVE: The patient was seen today on 04/26/2017. He is still having cough, but decreased shortness of breath. OBJECTIVE: VITAL SIGNS: Blood pressure is 109/72, temperature 98.6, respiratory rate 18, and pulse 64. HEENT: Pupils are equal and reactive to light. Normal appearing mucosa of the conjunctivae, oropharynx, and nasal membrane mucosa. NECK: Supple. No JVD. No carotid bruit. No lymph node. No thyromegaly. CHEST AND LUNGS: Bilateral symmetrical expansion. Good air exchange. No rales. No rhonchi. CARDIOVASCULAR SYSTEM: PMI not localized. S1, S2. No additional sounds. ABDOMEN: Normoactive bowel sounds. No tenderness. No organomegaly. No masses. EXTREMITIES: No cyanosis, no clubbing, no edema. CENTRAL NERVOUS SYSTEM: Alert, awake, and oriented x3. No neurological deficit could be appreciated. LABORATORY DATA: Chest x-ray repeated done today and showed no significant interval change compared to the prior examination. ASSESSMENT: Pneumonia, hyperactive airway disease. PLAN: Continue current antibiotics and inhaled steroids. Shruthi Taylor MD
[2017-04-27 06:23] LABS: HEMOGLOBIN 13.7 g/dL (12.0-18.0); MEAN CELL VOLUME 84.2 fl (80.0-94.0); MEAN CORPUSCULAR HEMOGLOBIN 28.4 pg (27.0-31.0); MEAN CORPUSCULAR HGB CONC 33.8 g/dL (33.0-37.0); RBC 4.82 Mil/uL (4.40-5.90); RED CELL DISTRIBUTION WIDTH 12.6 % (11.5-14.5); WHITE BLOOD COUNT 8.6 K/uL (4.8-10.8)
[2017-04-27 06:40] LABS: BLOOD UREA NITROGEN 12 mg/dl (9-20); CALCIUM 9.1 mg/dL (8.4-10.2); GFR AFRICAN-AMERICAN > 60; GFR NON-AFRICAN AMERICAN > 60
[2017-04-27 08:35] VITALS: BP 107/62; PULSE 69; O2SAT 98
[2017-04-27] MEDS: Fluticasone-Salmeterol 250-50mcg Diskus IH SCH (09:13)
[2017-04-27] MEDS: Enoxaparin 40 mg Syringe SC SCH (09:14)
[2017-04-27] MEDS: Saccharomyces Boulardi 250 mg Cap PO SCH (09:14)
[2017-04-27] MEDS: guaiFENesin 600 mg ER Tab PO SCH (09:14)
[2017-04-27] MEDS ORDERED: Pneumococcal 23-Valent Vaccine IM ONE (09:58)
--- NOTE | 2017-04-28 20:24 | DS ---
REASON FOR ADMISSION: This is a 47-year-old male with no significant past medical history, was admitted for lower respiratory tract infection respiratory symptoms that has been going on for about 10 days prior to this admission and the patient failed outpatient treatment. COURSE OF HOSPITALIZATION: The patient was admitted to medical floor and he was started on IV antibiotics as well as bronchodilators. The patient's symptoms remarkably improved and he had a repeated chest x-ray that did not show the initial infiltration. The patient was discharged home to continue Levaquin for another 5 days as well as inhaled steroids due to the hyperactive airways. FINAL DIAGNOSES: Pneumonia, hyperactive airway disease. Cox Monett MD [place]
== END 2017-04-27 14:33 | disposition home or self-care (01) | DRG 90 ==
LOC: H.ER 14:33 → H.ERHOLD 22:06 → H.MEDSURG1 23:35 → OBSVTOIN 04-24 11:44
PROVIDERS: ADMIT Internal Medicine; ATTEND Internal Medicine
PROC: 3E0F73Z Introduction of Anti-inflammatory into Respiratory Tract, Via Natural or Artificial Opening (ICD-10-PCS; principal; 2017-04-24)
PROC: 3E0234Z Introduction of Serum, Toxoid and Vaccine into Muscle, Percutaneous Approach (ICD-10-PCS; 2017-04-27)
DX: J18.9 Pneumonia, unspecified organism (principal); J22 Unspecified acute lower respiratory infection; I10 Essential (primary) hypertension; Z23 Encounter for immunization

== ENCOUNTER 2017-07-09 16:49 | Emergency (ER) | payer SELFPAY ==
[2017-07-09 16:49] VITALS: BMI 25.6
[2017-07-09 16:54] VITALS: RESP 16
[2017-07-09] MEDS ORDERED: Liquid Adhesive TOP ONE (18:10)
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
[2017-07-09 19:40] VITALS: BP 110/70; PULSE 70; TEMP 98; O2SAT 98
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
== END 2017-07-09 19:41 | disposition home or self-care (01) ==
LOC: H.ER 16:49
DX: S00.83XA Contusion of other part of head, initial encounter (principal); S70.02XA Contusion of left hip, initial encounter; S01.21XA Laceration without foreign body of nose, initial encounter; Y04.0XXA Assault by unarmed brawl or fight, initial encounter; Y92.89 Other specified places as the place of occurrence of the external cause; I10 Essential (primary) hypertension

== ENCOUNTER 2017-07-14 13:21 | Emergency (ER) | payer OTHER ==
[2017-07-14 13:21] VITALS: BMI 25.6
[2017-07-14 13:43] VITALS: BP 131/84; PULSE 85; RESP 16; TEMP 99.5; O2SAT 98
[2017-07-14] MEDS ORDERED: Tdap Vaccine 0.5 ml Vial (10-64 yrs) IM ONE ×2 (13:56→15:17)
--- NOTE | 2017-07-14 13:56 | ED PDOC ---
HPI: General Adult Time Seen by Provider: 07/14/17 13:44 Chief Complaint (Nursing): Abnormal Skin Integrity Chief Complaint (Provider): tetanus vaccine History Per: Patient Additional Complaint(s): Patient presents to emergency department requesting tetanus booster. Patient offers no acute complaints. PMD: none Past Medical History Reviewed: Historical Data, Nursing Documentation, Vital Signs Vital Signs: Last Vital Signs Temp 99.5 F 07/14/17 13:40 Pulse 85 07/14/17 13:40 Resp 16 07/14/17 13:40 BP 131/84 07/14/17 13:40 Pulse Ox 98 07/14/17 13:40 - Medical History PMH: HTN - Family History Family History: States: No Known Family Hx - Living Arrangements Living Arrangements: With Family - Social History Current smoker - smoking cessation education provided: No Alcohol: None Drugs: Denies - Immunization History Hx Tetanus Toxoid Vaccination: No (patient is not sure of last tetanus) - Home Medications Home Medications: Ambulatory Orders Medication Instructions Recorded Fluticasone/Salmeterol 250/50 1 puff IH Q12 #1 puff 04/27/17 [Advair Diskus 250/50] Levofloxacin [Levaquin] 500 mg PO DAILY #7 tablet 04/27/17 Saccharomyces Boulardi [Florastor] 250 mg PO BID #30 cap 04/27/17 guaiFENesin/Dextromethorphan 5 ml PO Q6 PRN #120 ml 04/27/17 [guaiFENesin-DM] - Allergies Allergies/Adverse Reactions: Allergies Allergy/AdvReac Type Severity Reaction Status Date / Time No Known Allergies Allergy Verified 04/17/17 08:48 Review of Systems ROS Statement: Except As Marked, All Systems Reviewed And Found Negative Constitutional: Positive for: Other (requesting tetanus) Physical Exam - Reviewed Nursing Documentation Reviewed: Yes Vital Signs Reviewed: Yes - Physical Exam Appears: Positive for: Well, Non-toxic, No Acute Distress Skin: Negative for: Rash Eye Exam: Positive for: Normal appearance Cardiovascular/Chest: Positive for: Regular Rate, Rhythm Respiratory: Positive for: Normal Breath Sounds Neurologic/Psych: Positive for: Alert, Oriented - ECG O2 Sat by Pulse Oximetry: 98 Pulse Ox Interpretation: Normal Medical Decision Making Medical Decision Makin47 year old here for tetanus booster Plan: Adacel IM Patient was referred to clinic for follow up. Disposition - Clinical Impression Clinical Impression: Requires a booster tetanus - Patient ED Disposition Is Patient to be Admitted: No - Disposition Referrals: [facility] [Outside] Disposition: Routine/Home Disposition Time: 13:56 Condition: STABLE Additional Instructions: Follow up as needed with clinic or primary care doctor. Instructions: Diphtheria and Tetanus Toxoids, and Acellular Pertussis Vaccine Forms: [employer] (Cape Verdean) Print Language: AZERI
== END 2017-07-14 15:27 | disposition home or self-care (01) ==
LOC: H.ER 13:21
DX: Z23 Encounter for immunization (principal); I10 Essential (primary) hypertension

== ENCOUNTER 2017-08-07 08:06 | Emergency (ER) | payer OTHER ==
[2017-08-07 08:06] VITALS: BMI 25.6
[2017-08-07] MEDS ORDERED: Sodium Chloride 0.9% 1,000 ML IV STA (08:52)
[2017-08-07 09:04] LABS: EOS # 0.2 K/uL (0.0-0.7); EOS % 1.7 % (0.0-4.0); HEMOGLOBIN 16.3 g/dL (12.0-18.0); LYMPH # 0.6 K/uL (1.0-4.3); LYMPH % 6.4 % (20.0-40.0); MEAN CELL VOLUME 84.1 fl (80.0-94.0); MEAN CORPUSCULAR HEMOGLOBIN 29.1 pg (27.0-31.0); MEAN CORPUSCULAR HGB CONC 34.6 g/dL (33.0-37.0); MEAN PLATELET VOLUME 7.6 fl (7.2-11.7); MONO # 0.7 K/uL (0.0-0.8); NEUT # 7.4 K/uL (1.8-7.0); NEUT % 83.9 % (50.0-75.0); PLATELET COUNT 232 K/uL (130-400); WHITE BLOOD COUNT 8.9 K/uL (4.8-10.8)
--- NOTE | 2017-08-07 09:07 | ED PDOC ---
HPI:Nausea, Vomiting, Diarrhea Time Seen by Provider: 08/07/17 08:38 Chief Complaint (Nursing): GI Problem Chief Complaint (Provider): vomiting and diarrhea History Per: Patient History/Exam Limitations: no limitations Onset/Duration Of Symptoms: Hrs (x3 ) Current Symptoms Are (Timing): Still Present Associated Symptoms: Vomiting, Diarrhea (watery). denies: Fever, Chills, Nausea Additional Complaint(s): Remington Ulloa is a 47 year old male, with no significant past medical history, who presents to the emergency department complaining of vomiting and watery diarrhea onset for x3 hours. Patient states his 's coworker had similar symptoms x3 days ago. He denies any fever, chills, nausea or abdominal pain. No further medical complaints. PMD: Shruthi Taylor Past Medical History Reviewed: Historical Data, Nursing Documentation, Vital Signs Vital Signs: Last Vital Signs Temp 97.9 F 08/07/17 08:30 Pulse 76 08/07/17 08:30 Resp 17 08/07/17 08:30 BP 109/70 08/07/17 08:30 Pulse Ox 98 08/07/17 08:30 - Medical History PMH: HTN - Surgical History Other surgeries: right eye surgery - Family History Family History: States: No Known Family Hx - Social History Ex-Smoker (has not smoked in the last 12 months): Yes Alcohol: Social Drugs: Denies - Immunization History Hx Tetanus Toxoid Vaccination: No (patient is not sure of last tetanus) - Home Medications Home Medications: Ambulatory Orders Medication Instructions Recorded Fluticasone/Salmeterol 250/50 1 puff IH Q12 #1 puff 04/27/17 [Advair Diskus 250/50] Levofloxacin [Levaquin] 500 mg PO DAILY #7 tablet 04/27/17 Saccharomyces Boulardi [Florastor] 250 mg PO BID #30 cap 04/27/17 guaiFENesin/Dextromethorphan 5 ml PO Q6 PRN #120 ml 04/27/17 [guaiFENesin-DM] Ciprofloxacin [Cipro] 500 mg PO BID #6 tab 08/07/17 Ondansetron [Zofran Odt] 4 mg PO Q8H PRN #15 odt 08/07/17 Atropine/Diphenoxylate [Lonox 2 tab PO BID #10 tab 08/08/17 0.025 MG-2.5 MG] - Allergies Allergies/Adverse Reactions: Allergies Allergy/AdvReac Type Severity Reaction Status Date / Time No Known Allergies Allergy Verified 04/17/17 08:48 Review of Systems ROS Statement: Except As Marked, All Systems Reviewed And Found Negative Constitutional: Negative for: Fever, Chills Gastrointestinal: Positive for: Vomiting, Diarrhea (watery). Negative for: Nausea, Abdominal Pain Physical Exam - Reviewed Nursing Documentation Reviewed: Yes Vital Signs Reviewed: Yes - Physical Exam Appears: Positive for: Non-toxic, No Acute Distress Head Exam: Positive for: ATRAUMATIC, NORMOCEPHALIC Skin: Positive for: Normal Color, Warm, Dry Eye Exam: Positive for: Normal appearance Neck: Positive for: Painless ROM Cardiovascular/Chest: Positive for: Regular Rate, Rhythm. Negative for: Murmur Respiratory: Positive for: Normal Breath Sounds. Negative for: Respiratory Distress Gastrointestinal/Abdominal: Positive for: Normal Exam, Soft. Negative for: Tenderness Back: Positive for: Normal Inspection. Negative for: L CVA Tenderness, R CVA Tenderness, Vertebral Tenderness Extremity: Positive for: Normal ROM (upper and lower extremities). Negative for : Deformity, Swelling Neurologic/Psych: Positive for: Alert, Oriented. Negative for: Motor/Sensory Deficits - Laboratory Results Result Diagrams: 08/07/17 08:50 08/07/17 08:50 - ECG O2 Sat by Pulse Oximetry: 98 (RA) Pulse Ox Interpretation: Normal Medical Decision Making Medical Decision Making: Initial Impression: vomiting & diarrhea Initial Plan: --CMP --Urine dipstick --CBC w/ differential --Sodium Chloride 1,000 ml IV 1,000 mls/hr --Zofran Inj 4 mg IV --Stool culture --Urinalysis --Reevaluation Scribe Attestation: Documented by Vincent Matamoros, acting as a scribe for Sidra Patrick MD Provider Scribe Attestation: All medical record entries made by the Scribe were at my direction and personally dictated by me. I have reviewed the chart and agree that the record accurately reflects my personal performance of the history, physical exam, medical decision making, and the department course for this patient. I have also personally directed, reviewed, and agree with the discharge instructions and disposition. Disposition - Clinical Impression Clinical Impression: Gastroenteritis - Disposition Referrals: [facility] [Outside] Disposition: Routine/Home Disposition Time: 12:28 Condition: IMPROVED Prescriptions: Ciprofloxacin [Cipro] 500 mg PO BID #6 tab Ondansetron [Zofran Odt] 4 mg PO Q8H PRN #15 odt PRN Reason: Nausea/Vomiting Instructions: Diarrhea and Traveler's Diarrhea, Adult (DC) Forms: [employer] (Serbian) Print Language: BENGALI
[2017-08-07 09:20] LABS: ALBUMIN 4.2 g/dL (3.5-5.0); ALT/SGPT 46 U/L (21-72); AST/SGOT 46 U/L (17-59); BLOOD UREA NITROGEN 18 mg/dl (9-20); CALCIUM 9.1 mg/dL (8.4-10.2); GFR AFRICAN-AMERICAN > 60; GFR NON-AFRICAN AMERICAN > 60
[2017-08-07 10:39] LABS: BANDS 2 % (0-2); EOSINOPHIL 1 % (0-7); LYMPHOCYTE 7 % (20-50); MONOCYTE 6 % (0-10); NEUTROPHIL 80 % (42-75); PLATELET ESTIMATE NORMAL (NORMAL); REACTIVE LYMPHOCYTES 4 % (0-0); TOTAL CELLS COUNTED 100
[2017-08-07 10:40] LABS: SQUAMOUS EPITHIAL 1 /hpf (0-5); URINE BILIRUBIN NEGATIVE (NEGATIVE); URINE BLOOD NEGATIVE (NEGATIVE); URINE CLARITY CLEAR (Clear); URINE COLOR YELLOW (YELLOW); URINE GLUCOSE (UA) NEG (Normal); URINE LEUKOCYTE ESTERASE NEG Leu/uL (Negative); URINE PROTEIN 30 mg/dL (NEGATIVE); URINE UROBILINOGEN 0.2-1.0 mg/dL (0.2-1.0)
[2017-08-07] MEDS ORDERED: Ciprofloxacin 400mg/200ml D5W 400 MG/200 ML BAG IV STA (11:21)
[2017-08-07] MEDS ORDERED: Ciprofloxacin 400mg/200ml D5W 400 MG/200 ML BAG IVPB ONE (11:41)
[2017-08-07 13:52] VITALS: BP 125/79; PULSE 81; RESP 16; TEMP 98.2
[2017-08-12 10:18] VITALS: O2SAT 98
== END 2017-08-07 13:53 | disposition home or self-care (01) ==
LOC: H.ER 08:06
DX: K52.9 Noninfective gastroenteritis and colitis, unspecified (principal); I10 Essential (primary) hypertension
CPT/HCPCS: 80053; 81003; 85025; 87045; 96374; 96375; 99284; J0744; J2405; J7040

== ENCOUNTER 2017-08-08 11:57 | Emergency (ER) | payer OTHER ==
[2017-08-08 12:13] VITALS: BMI 25.0
[2017-08-08] MEDS ORDERED: Sodium Chloride 0.9% 1,000 ML IV STA (12:25)
[2017-08-08 13:02] LABS: BASO % 0.2 % (0.0-2.0); EOS % 0.1 % (0.0-4.0); HEMOGLOBIN 17.4 g/dL (12.0-18.0); LYMPH # 0.6 K/uL (1.0-4.3); LYMPH % 7.2 % (20.0-40.0); MEAN CELL VOLUME 85.2 fl (80.0-94.0); MEAN CORPUSCULAR HEMOGLOBIN 28.7 pg (27.0-31.0); MEAN CORPUSCULAR HGB CONC 33.7 g/dL (33.0-37.0); MEAN PLATELET VOLUME 8.2 fl (7.2-11.7); MONO # 0.7 K/uL (0.0-0.8); MONO % 8.7 % (0.0-10.0); NEUT % 83.8 % (50.0-75.0); NRBC % 0.1 % (0.0-0.0); RBC 6.07 Mil/uL (4.40-5.90); RED CELL DISTRIBUTION WIDTH 13.7 % (11.5-14.5); WHITE BLOOD COUNT 8.4 K/uL (4.8-10.8)
[2017-08-08 13:24] LABS: ALB/GLOB RATIO 1.1 (1.0-2.1); ALBUMIN 4.7 g/dL (3.5-5.0); ALT/SGPT 61 U/L (21-72); AST/SGOT 52 U/L (17-59); BLOOD UREA NITROGEN 20 mg/dl (9-20); CALCIUM 9.3 mg/dL (8.4-10.2); GFR AFRICAN-AMERICAN > 60; GFR NON-AFRICAN AMERICAN > 60
[2017-08-08] MEDS ORDERED: Iohexol 300 100 ML IJ ONE (14:02)
--- NOTE | 2017-08-08 14:50 | CT ---
PROCEDURE: CT Abdomen and Pelvis with contrast HISTORY: diarrhea COMPARISON: None. TECHNIQUE: Contrast dose: 95 mL Omnipaque 300 Radiation dose: Total exam DLP = 608.6 mGy-cm. This CT exam was performed using one or more of the following dose reduction techniques: Automated exposure control, adjustment of the mA and/or kV according to patient size, and/or use of iterative reconstruction technique. FINDINGS: LOWER THORAX: Unremarkable. LIVER: Left hepatic lobe 1.4 x 0.8 cm cyst/hemangioma. . No gross lesion or ductal dilatation. GALLBLADDER AND BILE DUCTS: Unremarkable. PANCREAS: Unremarkable. No gross lesion or ductal dilatation. SPLEEN: Unremarkable. ADRENALS: Unremarkable. No mass. KIDNEYS AND URETERS: Unremarkable. No hydronephrosis. No solid mass. VASCULATURE: Unremarkable. No aortic aneurysm. BOWEL: Diffuse fluid-filled loops of small and large bowel. Colonic diverticulosis. No obstruction. No gross mural thickening. APPENDIX: Normal appendix. PERITONEUM: Small fat containing left inguinal hernia. No free fluid. No free air. LYMPH NODES: Unremarkable. No enlarged lymph nodes. BLADDER: Unremarkable. REPRODUCTIVE: Unremarkable. BONES: No acute fracture. OTHER FINDINGS: None. IMPRESSION: Fluid-filled loops of small and large bowel compatible with diarrhea. Colonic diverticulosis without evidence for acute diverticulitis. Additional findings as above.
[2017-08-08 15:02] VITALS: RESP 18
[2017-08-08] MEDS ORDERED: Atropine-Diphenoxylate 0.025-2.5 mg Tab PO STA (16:13)
--- NOTE | 2017-08-08 17:10 | ED PDOC ---
HPI:Nausea, Vomiting, Diarrhea Time Seen by Provider: 08/08/17 12:14 Chief Complaint (Nursing): GI Problem Chief Complaint (Provider): Diarrhea History Per: Patient History/Exam Limitations: no limitations Onset/Duration Of Symptoms: Days (2) Current Symptoms Are (Timing): Still Present Have you had recent travel within the past 21 days to any of the following countries: [place], [place], [place] or [place]?: No Additional Complaint(s): 47 yo male with HTN presents with diarrhea. PT seen in ER yesterday for same. Today is second day of watery diarrhea. PT was prescribed cipro and reports taking only 1 this morning. Pt denies abdominal pain. No blood or mucous in diarrhea. Past Medical History Reviewed: Historical Data, Nursing Documentation, Vital Signs Vital Signs: Last Vital Signs Temp 98 F 08/08/17 15:02 Pulse 80 08/08/17 15:02 Resp 18 08/08/17 15:02 BP 142/87 08/08/17 15:02 Pulse Ox 99 08/08/17 15:02 - Medical History PMH: HTN - Surgical History Surgical History: No Surg Hx - Family History Family History: States: No Known Family Hx - Immunization History Hx Tetanus Toxoid Vaccination: No (patient is not sure of last tetanus) - Home Medications Home Medications: Ambulatory Orders Medication Instructions Recorded Fluticasone/Salmeterol 250/50 1 puff IH Q12 #1 puff 04/27/17 [Advair Diskus 250/50] Levofloxacin [Levaquin] 500 mg PO DAILY #7 tablet 04/27/17 Saccharomyces Boulardi [Florastor] 250 mg PO BID #30 cap 04/27/17 guaiFENesin/Dextromethorphan 5 ml PO Q6 PRN #120 ml 04/27/17 [guaiFENesin-DM] Ciprofloxacin [Cipro] 500 mg PO BID #6 tab 08/07/17 Ondansetron [Zofran Odt] 4 mg PO Q8H PRN #15 odt 08/07/17 Atropine/Diphenoxylate [Lonox 2 tab PO BID #10 tab 08/08/17 0.025 MG-2.5 MG] - Allergies Allergies/Adverse Reactions: Allergies Allergy/AdvReac Type Severity Reaction Status Date / Time No Known Allergies Allergy Verified 04/17/17 08:48 Review of Systems ROS Statement: Except As Marked, All Systems Reviewed And Found Negative Constitutional: Negative for: Fever, Chills Gastrointestinal: Positive for: Diarrhea. Negative for: Nausea, Vomiting, Abdominal Pain Physical Exam - Reviewed Nursing Documentation Reviewed: Yes Vital Signs Reviewed: Yes - Physical Exam Appears: Positive for: Well, Non-toxic, No Acute Distress Head Exam: Positive for: ATRAUMATIC, NORMAL INSPECTION, NORMOCEPHALIC Skin: Positive for: Normal Color, Warm, DRY Eye Exam: Positive for: Normal appearance ENT: Positive for: Normal ENT Inspection Neck: Positive for: Normal, Painless ROM Cardiovascular/Chest: Positive for: Regular Rate, Rhythm Respiratory: Positive for: Normal Breath Sounds. Negative for: Accessory Muscle Use, Respiratory Distress Gastrointestinal/Abdominal: Positive for: Normal Exam, Soft. Negative for: Tenderness Back: Positive for: Normal Inspection Extremity: Positive for: Normal ROM Neurologic/Psych: Positive for: Alert, Oriented - Laboratory Results Result Diagrams: 08/08/17 12:30 08/08/17 12:30 - ECG O2 Sat by Pulse Oximetry: 99 Medical Decision Making Medical Decision Making: Labs normal. CT normal. Disposition - Clinical Impression Clinical Impression: Viral gastroenteritis - Patient ED Disposition Is Patient to be Admitted: No Counseled Patient/Family Regarding: Diagnosis, Need For Followup - Disposition Disposition: Routine/Home Disposition Time: 17:33 Condition: STABLE Prescriptions: Atropine/Diphenoxylate [Lonox 0.025 MG-2.5 MG] 2 tab PO BID #10 tab Instructions: Viral Gastroenteritis, Adult (DC)
[2017-08-08] MEDS ORDERED: Atropine-Diphenoxylate 0.025-2.5 mg Tab ONE ×2 (17:16→17:23)
[2017-08-08 18:21] VITALS: BP 137/77; PULSE 108; TEMP 98.6; O2SAT 98
== END 2017-08-08 18:21 | disposition home or self-care (01) ==
LOC: H.ER 11:57
DX: A08.4 Viral intestinal infection, unspecified (principal); I10 Essential (primary) hypertension
CPT/HCPCS: 74177; 80053; 85025; 87040; 99283; J7040; Q9967

== ENCOUNTER 2017-10-31 17:52 | Emergency (ER) | payer OTHER ==
[2017-10-31 17:52] VITALS: BMI 25.0
[2017-10-31 17:59] VITALS: O2SAT 96
[2017-10-31 19:53] LABS: BASO # 0.1 K/uL (0.0-0.2); BASO % 1.3 % (0.0-2.0); EOS # 0.1 K/uL (0.0-0.7); EOS % 2.1 % (0.0-4.0); HEMOGLOBIN 15.5 g/dL (12.0-18.0); LYMPH # 2.6 K/uL (1.0-4.3); LYMPH % 35.7 % (20.0-40.0); MEAN CELL VOLUME 86.8 fl (80.0-94.0); MEAN CORPUSCULAR HEMOGLOBIN 30.2 pg (27.0-31.0); MEAN CORPUSCULAR HGB CONC 34.8 g/dL (33.0-37.0); MEAN PLATELET VOLUME 7.8 fl (7.2-11.7); MONO # 0.7 K/uL (0.0-0.8); MONO % 10.2 % (0.0-10.0); NEUT # 3.7 K/uL (1.8-7.0); NEUT % 50.7 % (50.0-75.0); NRBC % 0.1 % (0.0-0.0); RBC 5.12 Mil/uL (4.40-5.90); RED CELL DISTRIBUTION WIDTH 13.8 % (11.5-14.5); WHITE BLOOD COUNT 7.3 K/uL (4.8-10.8)
--- NOTE | 2017-10-31 19:53 | ED PDOC ---
HPI: Psych/Substance Abuse Time Seen by Provider: 10/31/17 18:10 Chief Complaint (Nursing): Palpitations Chief Complaint (Provider): ETOH abuse History Per: Patient, Family (brother) History/Exam Limitations: no limitations Onset/Duration Of Symptoms: Days Current Symptoms Are (Timing): Still Present Additional Complaint(s): Remington Ulloa is a 47 year old male, with a past history of alcohol abuse, who was brought to the emergency department by brother for ETOH use. Brother reports patient has been drinking for x5 days straight. 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 He denies any abdominal pain, nausea, vomit or other medical complaints. PMD: Dr. Taylor. Past Medical History Reviewed: Historical Data, Nursing Documentation, Vital Signs Vital Signs: Last Vital Signs Temp 98.6 F 10/31/17 17:57 Pulse 105 H 10/31/17 17:57 Resp 20 10/31/17 17:57 BP 114/73 10/31/17 17:57 Pulse Ox 96 10/31/17 17:57 - Medical History PMH: HTN - Surgical History Surgical History: No Surg Hx - Family History Family History: States: Unknown Family Hx - Social History Current smoker - smoking cessation education provided: No Alcohol: > 2 Drinks/Day Drugs: Denies - Immunization History Hx Tetanus Toxoid Vaccination: No (patient is not sure of last tetanus) - Home Medications Home Medications: Ambulatory Orders Medication Instructions Recorded Fluticasone/Salmeterol 250/50 1 puff IH Q12 #1 puff 04/27/17 [Advair Diskus 250/50] Levofloxacin [Levaquin] 500 mg PO DAILY #7 tablet 04/27/17 Saccharomyces Boulardi [Florastor] 250 mg PO BID #30 cap 04/27/17 guaiFENesin/Dextromethorphan 5 ml PO Q6 PRN #120 ml 04/27/17 [guaiFENesin-DM] Ciprofloxacin [Cipro] 500 mg PO BID #6 tab 08/07/17 Ondansetron [Zofran Odt] 4 mg PO Q8H PRN #15 odt 08/07/17 Atropine/Diphenoxylate [Lonox 2 tab PO BID #10 tab 08/08/17 0.025 MG-2.5 MG] - Allergies Allergies/Adverse Reactions: Allergies Allergy/AdvReac Type Severity Reaction Status Date / Time No Known Allergies Allergy Verified 10/31/17 17:56 Review of Systems ROS Statement: Except As Marked, All Systems Reviewed And Found Negative Gastrointestinal: Negative for: Nausea, Vomiting, Abdominal Pain Psych: Positive for: Other (alcohol abuse) Physical Exam - Reviewed Nursing Documentation Reviewed: Yes Vital Signs Reviewed: Yes - Physical Exam Appears: Positive for: No Acute Distress Head Exam: Positive for: ATRAUMATIC, NORMAL INSPECTION, NORMOCEPHALIC Skin: Positive for: Normal Color, Warm, Dry Eye Exam: Positive for: Normal appearance, EOMI, PERRL ENT: Positive for: Normal ENT Inspection Neck: Positive for: Painless ROM Cardiovascular/Chest: Positive for: Regular Rate, Rhythm. Negative for: Murmur Respiratory: Positive for: Normal Breath Sounds. Negative for: Respiratory Distress Gastrointestinal/Abdominal: Positive for: Normal Exam, Soft. Negative for: Tenderness Back: Positive for: Normal Inspection Extremity: Positive for: Normal ROM (upper and lower extremities). Negative for : Deformity, Swelling Neurologic/Psych: Positive for: Alert, Oriented - Laboratory Results Result Diagrams: 10/31/17 19:49 10/31/17 19:49 - ECG O2 Sat by Pulse Oximetry: 96 (RA) Pulse Ox Interpretation: Normal Medical Decision Making Medical Decision Making: Time: 18:24 Initial impression: alcohol abuse rule out electrolyte abnormality Initial Plan: --Alcohol serum --CMP --Lipase --CBC w/ differential --Reevaluation 21:30 -Upon provider reevaluation patient is feeling better, is medically stable, and requires no further treatment in the ED at this time. automotive worker saw pt and referred him to detox. Counseling was provided and all questions were answered regarding diagnosis. There is agreement to discharge plan. ----- Scribe Attestation: Documented by Vincent Matamoros, acting as a scribe for Mayo Castillo MD. Provider Scribe Attestation: All medical record entries made by the Marian were at my direction and personally dictated by me. I have reviewed the chart and agree that the record accurately reflects my personal performance of the history, physical exam, medical decision making, and the department course for this patient. I have also personally directed, reviewed, and agree with the discharge instructions and disposition. Disposition - Clinical Impression Clinical Impression: Alcohol intoxication - Patient ED Disposition Is Patient to be Admitted: No Counseled Patient/Family Regarding: Studies Performed, Diagnosis, Need For Followup - Disposition Disposition: Routine/Home Disposition Time: 21:10 Condition: IMPROVED Additional Instructions: follow up with detox programs as instructed return to the ED with any worsening or concerning symptoms Instructions: Alcohol Abuse and Alcoholism (DC) Forms: [facility] (Pashto) Print Language: ZIMBABWEAN
[2017-10-31 20:05] LABS: ALB/GLOB RATIO 1.1 (1.0-2.1); ALBUMIN 4.2 g/dL (3.5-5.0); ALT/SGPT 40 U/L (21-72); AST/SGOT 53 U/L (17-59); BLOOD UREA NITROGEN 9 mg/dl (9-20); CALCIUM 8.6 mg/dL (8.4-10.2); GFR AFRICAN-AMERICAN > 60; GFR NON-AFRICAN AMERICAN > 60; LIPASE 66 U/L (23-300)
[2017-10-31 21:47] VITALS: BP 104/70; PULSE 92; RESP 18; TEMP 98.2
== END 2017-10-31 21:30 | disposition home or self-care (01) ==
LOC: H.ER 17:52
DX: F10.129 Alcohol abuse with intoxication, unspecified (principal); I10 Essential (primary) hypertension

== ENCOUNTER 2018-01-11 14:56 | Emergency (ER) | payer OTHER ==
[2018-01-11 14:56] VITALS: BMI 25.0
[2018-01-11] MEDS ORDERED: Sodium Chloride 0.9% 1,000 ML IV STA (15:52)
--- NOTE | 2018-01-11 15:52 | ED PDOC ---
HPI: Psych/Substance Abuse Time Seen by Provider: 01/11/18 15:32 Chief Complaint (Nursing): Alcohol Ingestion Chief Complaint (Provider): etoh History Per: Patient, Bottom Presser (Karo BaltazarAccountant Helper - [id number]) Additional Complaint(s): 47-year-old male presents with generalized anxiety. Patient states he has been binge drinking for the past 4 days. He states that if he stops drinking he feels very shaky and nervous. Patient denies suicidal or homicidal ideation. He last drank 1 hour prior to arrival. Prior to these past few days patient states he usually only drinks on weekends. PMD: Dr. Taylor Past Medical History Reviewed: Historical Data, Nursing Documentation, Vital Signs Vital Signs: Last Vital Signs Temp 98.8 F 01/11/18 15:25 Pulse 92 H 01/11/18 15:25 Resp 18 01/11/18 15:25 BP 127/84 01/11/18 15:25 Pulse Ox 99 01/11/18 15:25 - Medical History PMH: HTN - Family History Family History: States: No Known Family Hx - Living Arrangements Living Arrangements: With Family - Social History Current smoker - smoking cessation education provided: No Alcohol: > 2 Drinks/Day Drugs: Denies - Home Medications Home Medications: Ambulatory Orders Medication Instructions Recorded Fluticasone/Salmeterol 250/50 1 puff IH Q12 #1 puff 04/27/17 [Advair Diskus 250/50] Levofloxacin [Levaquin] 500 mg PO DAILY #7 tablet 04/27/17 Saccharomyces Boulardi [Florastor] 250 mg PO BID #30 cap 04/27/17 guaiFENesin/Dextromethorphan 5 ml PO Q6 PRN #120 ml 04/27/17 [guaiFENesin-DM] Ciprofloxacin [Cipro] 500 mg PO BID #6 tab 08/07/17 Ondansetron [Zofran Odt] 4 mg PO Q8H PRN #15 odt 08/07/17 Atropine/Diphenoxylate [Lonox 2 tab PO BID #10 tab 08/08/17 0.025 MG-2.5 MG] - Allergies Allergies/Adverse Reactions: Allergies Allergy/AdvReac Type Severity Reaction Status Date / Time No Known Allergies Allergy Verified 01/11/18 15:25 Review of Systems ROS Statement: Except As Marked, All Systems Reviewed And Found Negative Constitutional: Positive for: Chills. Negative for: Fever Cardiovascular: Negative for: Chest Pain Respiratory: Negative for: Cough Gastrointestinal: Negative for: Nausea, Vomiting Psych: Positive for: Anxiety, Suicidal ideation (denies suicidal or homicidal ideation), Other (etoh) Physical Exam - Reviewed Nursing Documentation Reviewed: Yes Vital Signs Reviewed: Yes - Physical Exam Appears: Positive for: Well, Non-toxic, No Acute Distress Skin: Positive for: Normal Color. Negative for: Rash Eye Exam: Positive for: Normal appearance Neck: Positive for: Normal Cardiovascular/Chest: Positive for: Regular Rate, Rhythm Respiratory: Positive for: Normal Breath Sounds. Negative for: Wheezing, Respiratory Distress Gastrointestinal/Abdominal: Positive for: Soft. Negative for: Tenderness, Distended, Guarding, Rebound Back: Negative for: L CVA Tenderness, R CVA Tenderness Extremity: Positive for: Normal ROM Neurologic/Psych: Positive for: Alert, parakeet raiser II-XII (grossly intact), Oriented - Laboratory Results Result Diagrams: 01/11/18 16:56 01/11/18 16:56 - ECG Interpretation Of ECG: NSR 72 bpm, no acute finding, reviewed by PA and ED attending O2 Sat by Pulse Oximetry: 99 Pulse Ox Interpretation: Normal Medical Decision Making Medical Decision Makin47 year old intoxicated male Plan: CBC CMP BAL UDS Troponin EKG IVF IV ativan 1 mg PO 50 mg Librium Patient reports improvement in symptoms after meds given in ED. He is aware of all diagnostic testing results. All questions answered. Patient denies suicidal or homicidal ideation. He states is not wish to talk to a crisis counselor. Patient was given list of local detox facilities and was advised to follow up as soon as possible. Patient is also aware he can return to emergency room any time if acutely worse. Disposition - Clinical Impression Clinical Impression: Alcohol abuse with intoxication Counseled Patient/Family Regarding: Studies Performed, Diagnosis, Need For Followup - Disposition Referrals: Shruthi Taylor MD [Staff Provider] - Disposition: Routine/Home Disposition Time: 19:14 Condition: STABLE Additional Instructions: Inquire about detox facilities as soon as possible. Instructions: Alcohol Abuse and Alcoholism (DC), Effects of Alcohol on Your Health Forms: [employer] (Thai), [employer] (Latvian) Print Language: UZBEK Results - Lab Results Lab Results: 01/11/18 01/11/18 16:56 16:56 WBC 6.1 RBC 5.19 Hgb 15.6 Hct 44.4 MCV 85.5 MCH 30.0 MCHC 35.1 RDW 12.7 Plt Count 291 MPV 7.1 L Neut % (Auto) 59.4 Lymph % (Auto) 32.3 [place] % (Auto) 7.0 Eos % (Auto) 0.4 Baso % (Auto) 0.9 Neut # (Auto) 3.6 Lymph # (Auto) 2.0 [place] # (Auto) 0.4 Eos # (Auto) 0.0 Baso # (Auto) 0.1 Sodium 145 Potassium 3.5 L Chloride 106 Carbon Dioxide 26 Anion Gap 17 BUN 5 L Creatinine 0.5 L Est GFR ( Amer) > 60 Est GFR (Non-Af Amer) > 60 Random Glucose 107 Calcium 8.6 Total Bilirubin 0.2 AST 37 ALT 42 Alkaline Phosphatase 103 Troponin I < 0.0120 Total Protein 8.2 Albumin 4.2 Globulin 4.0 H Albumin/Globulin Ratio 1.1 Alcohol, Quantitative 173 H
[2018-01-11 17:00] LABS: BASO # 0.1 K/uL (0.0-0.2); BASO % 0.9 % (0.0-2.0); EOS % 0.4 % (0.0-4.0); HEMOGLOBIN 15.6 g/dL (12.0-18.0); LYMPH % 32.3 % (20.0-40.0); MEAN CELL VOLUME 85.5 fl (80.0-94.0); MEAN CORPUSCULAR HGB CONC 35.1 g/dL (33.0-37.0); MEAN PLATELET VOLUME 7.1 fl (7.2-11.7); MONO # 0.4 K/uL (0.0-0.8); NEUT # 3.6 K/uL (1.8-7.0); NEUT % 59.4 % (50.0-75.0); NRBC % 0.1 % (0.0-0.0); RBC 5.19 Mil/uL (4.40-5.90); RED CELL DISTRIBUTION WIDTH 12.7 % (11.5-14.5); WHITE BLOOD COUNT 6.1 K/uL (4.8-10.8)
[2018-01-11 17:14] LABS: ALB/GLOB RATIO 1.1 (1.0-2.1); ALBUMIN 4.2 g/dL (3.5-5.0); ALT/SGPT 42 U/L (21-72); AST/SGOT 37 U/L (17-59); BLOOD UREA NITROGEN 5 mg/dl (9-20); CALCIUM 8.6 mg/dL (8.4-10.2); GFR NON-AFRICAN AMERICAN > 60
--- NOTE | 2018-01-11 19:00 | RAD ---
Date of service: 01/11/2018 HISTORY: chest pain COMPARISON: 04/26/2017 FINDINGS: LUNGS: No active pulmonary disease. PLEURA: No significant pleural effusion identified, no pneumothorax apparent. CARDIOVASCULAR: Normal. OSSEOUS STRUCTURES: No significant abnormalities. VISUALIZED UPPER ABDOMEN: Normal. OTHER FINDINGS: None. IMPRESSION: No active disease.
[2018-01-11 19:42] VITALS: BP 144/68; PULSE 78; RESP 16; TEMP 98; O2SAT 98
--- NOTE | 2018-01-11 22:06 | CARD ---
APPROVED REPORT Date of service: 01/11/2018 EKG Measurement Heart [id number] <Conclusion> Normal sinus rhythm Normal ECG
== END 2018-01-11 19:41 | disposition home or self-care (01) ==
LOC: H.ER 14:56
DX: F10.129 Alcohol abuse with intoxication, unspecified (principal); F41.1 Generalized anxiety disorder; I10 Essential (primary) hypertension
CPT/HCPCS: 71045; 80053; 80320; 84484; 85025; 93005; 96374; 99282; J2060; J7030

== ENCOUNTER 2018-02-11 17:54 | Emergency (ER) | payer SELFPAY ==
[2018-02-11 17:55] VITALS: BMI 25.0
[2018-02-11 18:22] VITALS: TEMP 98.7
--- NOTE | 2018-02-11 21:16 | ED PDOC ---
HPI: Psych/Substance Abuse Time Seen by Provider: 02/11/18 19:16 Chief Complaint (Nursing): Alcohol Ingestion Chief Complaint (Provider): withdrawal History Per: Patient History/Exam Limitations: no limitations Onset/Duration Of Symptoms: Days (1) Additional Complaint(s): drinking heavily ~20 beers/day for 5 days h/o alcoholism admits to drinking just prior to arrival unable to sleep last 2 days PMD: Dr Taylor Past Medical History Reviewed: Historical Data, Nursing Documentation, Vital Signs Vital Signs: Last Vital Signs Temp 98.7 F 02/11/18 18:19 Pulse 106 H 02/11/18 18:19 Resp 18 02/11/18 18:19 BP 131/84 02/11/18 18:19 Pulse Ox 100 02/11/18 18:19 - Medical History PMH: HTN - Surgical History Surgical History: No Surg Hx - Family History Family History: States: Unknown Family Hx - Social History Current smoker - smoking cessation education provided: No - Immunization History Hx Tetanus Toxoid Vaccination: No (patient is not sure of last tetanus) - Home Medications Home Medications: Ambulatory Orders Medication Instructions Recorded Fluticasone/Salmeterol 250/50 1 puff IH Q12 #1 puff 04/27/17 [Advair Diskus 250/50] Levofloxacin [Levaquin] 500 mg PO DAILY #7 tablet 04/27/17 Saccharomyces Boulardi [Florastor] 250 mg PO BID #30 cap 04/27/17 guaiFENesin/Dextromethorphan 5 ml PO Q6 PRN #120 ml 04/27/17 [guaiFENesin-DM] Ciprofloxacin [Cipro] 500 mg PO BID #6 tab 08/07/17 Ondansetron [Zofran Odt] 4 mg PO Q8H PRN #15 odt 08/07/17 Atropine/Diphenoxylate [Lonox 2 tab PO BID #10 tab 08/08/17 0.025 MG-2.5 MG] Ondansetron ODT [Zofran ODT] 1 odt PO Q6 PRN #20 odt 02/11/18 chlordiazePOXIDE [Chlordiazepoxide 25 mg PO Q6 PRN #10 cap 02/11/18 HCl] - Allergies Allergies/Adverse Reactions: Allergies Allergy/AdvReac Type Severity Reaction Status Date / Time No Known Allergies Allergy Verified 02/11/18 18:19 Review of Systems ROS Statement: Except As Marked, All Systems Reviewed And Found Negative (and as per HPI) Gastrointestinal: Negative for: Nausea, Vomiting Neurological: Negative for: Weakness, Numbness Psych: Positive for: Anxiety, Withdrawal. Negative for: Depression, Psychosis, Suicidal ideation Physical Exam - Reviewed Nursing Documentation Reviewed: Yes Vital Signs Reviewed: Yes - Physical Exam Appears: Positive for: Non-toxic, No Acute Distress (sleeping in chair on my arr ival for examination) Head Exam: Positive for: ATRAUMATIC, NORMOCEPHALIC Skin: Positive for: Warm, Dry Eye Exam: Positive for: EOMI, PERRL, Conjunctival injection ENT: Negative for: Pharyngeal Erythema, Tonsillar Exudate Neck: Positive for: Painless ROM, Supple Cardiovascular/Chest: Positive for: Tachycardia (regular rhythm). Negative for: Murmur Respiratory: Positive for: Normal Breath Sounds. Negative for: Respiratory Distress Gastrointestinal/Abdominal: Positive for: Soft. Negative for: Tenderness Back: Positive for: Normal Inspection. Negative for: Decreased ROM Extremity: Positive for: Normal ROM. Negative for: Deformity Lymphatic: Negative for: Adenopathy Neurologic/Psych: Positive for: Alert, brand marketing manager II-XII (intact), Oriented (x3). Negative for: Motor/Sensory Deficits - ECG O2 Sat by Pulse Oximetry: 100 Disposition - Clinical Impression Clinical Impression: Alcohol abuse - Disposition Referrals: Shruthi Taylor MD [Staff Provider] - Disposition: Routine/Home Disposition Time: 21:00 Condition: IMPROVED Prescriptions: chlordiazePOXIDE [Chlordiazepoxide HCl] 25 mg PO Q6 PRN #10 cap PRN Reason: alcohol withdrawal symptoms Ondansetron ODT [Zofran ODT] 1 odt PO Q6 PRN #20 odt PRN Reason: Nausea/Vomiting Instructions: Alcohol Abuse and Alcoholism (DC) Print Language: SLOVENIAN
[2018-02-11 21:22] VITALS: BP 135/79; PULSE 108; RESP 20
[2018-02-11 22:33] VITALS: O2SAT 100
== END 2018-02-11 21:54 | disposition home or self-care (01) ==
LOC: H.ER 17:54
DX: F10.20 Alcohol dependence, uncomplicated (principal); I10 Essential (primary) hypertension